=== PATIENT | female | born 1950 | race Caucasian/White ===

== ENCOUNTER → 2016-07-31 | Day surgery (SDC) | payer MEDICARE, OTHER ==
[~2016-07-31] VITALS: Ht 168.9 cm; Wt 97.8 kg
[~2016-07-31] MED LIST: ALLEGRA180 MG PO; BIOTIN5000 MCG PO; CALCIUM 600 +1 EAC6 PO; CENTRUM SILVER1 TAB PO; CPAP INH; CRESTOR5 MG PO; CYMBALTA60 MG PO; EVISTA60 MG PO; FLONASE 50 MCG/16 GM NOSE; LOSARTAN-HCTZ1 EAC1 PO; PANTOPRAZOLE SO40 MG PO; RESTASIS 0.05%1 VIAL OPHTH; TURMERIC500 MG PO; VITAMIN D35000 UNI1 PO; ZETIA10 MG PO
== END | disposition disaster alternative care site (69) ==
LOC: GPOC 07-30 09:00 → GEND 08:44
PROC: 0DJ08ZZ Inspection of Upper Intestinal Tract, Via Natural or Artificial Opening Endoscopic (ICD-10-PCS; principal; 2016-07-31)
DX: K29.60 Other gastritis without bleeding (principal); K31.89 Other diseases of stomach and duodenum; K21.9 Gastro-esophageal reflux disease without esophagitis; I10 Essential (primary) hypertension; F41.9 Anxiety disorder, unspecified; J45.909 Unspecified asthma, uncomplicated; G47.30 Sleep apnea, unspecified; Z88.0 Allergy status to penicillin; Z88.5 Allergy status to narcotic agent; Z90.710 Acquired absence of both cervix and uterus; Z90.49 Acquired absence of other specified parts of digestive tract; Z98.890 Other specified postprocedural states
CPT/HCPCS: J7030